=== PATIENT | male | born 1995 | race Hispanic/Latino ===

== ENCOUNTER 2018-07-12 12:49 | Outpatient (CLI) | payer OTHER ==
--- NOTE | 2018-07-12 15:17 | CT ---
LUMBAR SPINE CT WITHOUT CONTRAST: 07/12/18 HISTORY: Low back pain. Pars defects. COMPARISON: None. TECHNIQUE: CT lumbar spine is performed without contrast. Reformatted images are submitted for interpretation. FINDINGS: The visualized solid organs and retroperitoneal structures as well as the alimentary canal are unrema rkable. There are bilateral pars defects at L5 with significant associated spondylolisthesis. There is 7 mm o f anterolisthesis of L5 upon S1. No evidence of fracture. No additional areas of spondylolisthesis or spondylolysis. Limited evaluation of contents of the central spinal canal and neural foramina due to technique. T11-T12, T12-L1: No significant central canal stenosis or foraminal narrowing. L1-L2: No significant central canal stenosis or foraminal narrowing. L2-L3: No significant central canal stenosis. Neural foramina are patent. L3-L4: Generalized disc bulge, ligamentum flavum thickening and facet hypertrophy result in mild ashley tral canal stenosis. Mild bilateral foraminal narrowing. L4-L5: Generalized disc bulge with a central disc protrusion. Disc material encroaches upon the left and right subarticular zones without significant obscuration of either traversing L5 nerve root. Ther e is mild ligamentum flavum thickening. There is no significant central canal stenosis. Mild right a nd left foraminal narrowing. L5-S1: Mild loss of disc space height. There is a broad based disc bulge with a central/left subartic ular disc herniation. There is no significant stenosis of the thecal sac. Disc material abuts but nguyen s not obscure the traversing left S1 nerve root. Right subarticular zone is unremarkable. Mild to mod erate right and mild to moderate left foraminal narrowing. IMPRESSION: 1. Degenerative disc disease at L4-L5 and L5-S1 as described above. 2. Grade I anterolisthesis of L5 upon S1 with associated bilateral pars defects. POS: [facility]
== END 2018-07-12 12:50 | disposition home or self-care (01) ==
LOC: TBSIIMAG 12:49
PROVIDERS: ATTEND Neurological Surgery
DX: M54.5 Low back pain (principal); M43.06 Spondylolysis, lumbar region; M51.36 Other intervertebral disc degeneration, lumbar region; M51.37 Other intervertebral disc degeneration, lumbosacral region; M43.16 Spondylolisthesis, lumbar region
CPT/HCPCS: 72131